=== PATIENT | female | born 1985 | race Caucasian/White ===

== ENCOUNTER 2019-10-01 11:22 | Emergency (ER) | payer OTHER, SELFPAY ==
[2019-10-01 11:28] VITALS: BMI 27.3
--- NOTE | 2019-10-01 11:33 | ED_ITS ---
Entered by Dary Martinez, acting as scribe for Surendra Barker DO HPI - Headache General: Chief Complaint: Headache Stated Complaint: migraine Time Seen by Provider: 10/01/19 11:34 Source: patient Mode of arrival: ambulatory Limitations: no limitations History of Present Illness: HPI Narrative: 34 yo female presents with a headache post dental pain. pt states this started a few nights ago. pt states her wisdom teeth removed and that is causing her headache. pt states she tried over the counter medications and pain medications and nothing is helping the pain. pt denies any other symptoms at this time. MD elicited complaint: headache Onset (ago): day(s) (3-4 days ago) Onset description: gradually Severity: moderate Quality & Timing: aching and throbbing Exacerbating factors: other (wisdom teeth causing headache) Relieving factors: nothing Context: occurred at rest Associated symptoms: Reports other (headache); Deny chest pain, fever(s), malaise, nausea, rash, syncope or vomiting Treatments prior to arrival: acetaminophen, ibuprofen, migraine medication and other (pain medications) Review of Systems General: Reports: 10 or more systems reviewed and unremarkable except in HPI and below Const: Denies: fever, chills, body aches, fatigue, malaise or night sweats Eyes: Denies: change in vision or blurry vision Card: Denies: chest pain, palpitations, irregular heart rhythm, edema, syncope, shortness of breath on exertion, shortness of breath when lying down or leg pain with exertion Resp: Denies: shortness of breath, productive cough, non-productive cough or wheezing GI: Denies: abdominal pain, nausea, vomiting, vomiting blood, coffee grounds in vomit, difficulty swallowing, heartburn/indigestion, diarrhea, constipation, cramping, blood in stool or black tarry stool : Denies: flank pain, painful urination, urinary frequency, urinary urgency, urinary incontinence or blood in urine Musc: Denies: neck pain, back pain, extremity pain, extremity swelling, joint pain or joint swelling Skin/Breast: Denies: rash, itching or redness Neuro: Reports: headache Psych: Denies: anxiety, depression, loss of interest, visual hallucinations, auditory hallucinations, suicidal ideation or homicidal ideation Endo: Denies: excessive urination, excessive thirst, tired all the time or cold intolerance Paul/Lymph: Denies: easy bruising, easy bleeding, petechiae, enlarged lymph nodes or tender lymph nodes PFSH ED PFSH: Social History Smoking and tobacco status: never smoked Physical Exam Const: COMMON NORMALS: average body habitus, oriented x3 and alert GENERAL APPEARANCE: cooperative, comfortable, well kempt and well developed NUTRITIONAL APPEARANCE: obese ORIENTATION/CONSCIOUSNESS: Yes awake, Yes oriented to person and Yes oriented to place HENMT: COMMON NORMALS: normocephalic, head/scalp atraumatic, EAC's normal, TM's normal bilaterally, external nose normal, moist oral mucous membranes and oropharynx normal HEAD & SCALP: normocephalic and atraumatic NOSE: external nose normal EXTERNAL AUDITORY CANAL: EAC's normal TYMPANIC MEMBRANE: TM's normal bilaterally THROAT: posterior oropharynx normal and tonsils normal Eye: COMMON NORMALS: PERRL, EOMs intact bilaterally, conjunctivae normal and no scleral icterus CONJUNCTIVA: Yes conjunctivae normal PUPIL: Yes PERRL Neck/C-Spine: COMMON NORMALS: full ROM, no lymphadenopathy, supple, no meningeal signs and thyroid normal THYROID: thyroid normal and asymmetrical Lymph: LYMPHATIC: no lymphadenopathy noted Resp: COMMON NORMALS: normal respiratory effort, no retractions, no use of accessory muscles and clear to auscultation bilaterally AUSCULTATION: clear to auscultation bilaterally Cardio: COMMON NORMALS: regular rate and regular rhythm RATE: regular rate RHYTHM: regular rhythm HEART SOUNDS: no murmurs GI: COMMON NORMALS: normal to inspection, nondistended, normoactive bowel sounds, soft to palpation and no hepatosplenomegaly PALPATION: Yes soft and Yes no hepatosplenomegaly : COMMON NORMALS: Yes no CVA tenderness BLADDER/KIDNEY EXAM: Yes no CVA tenderness Back/Pelvis: COMMON NORMALS: no CVA tenderness LUMBAR SPINE/LOWER BACK: Yes normal to inspection Extremity: COMMON NORMALS: no clubbing, cyanosis or edema, no calf tenderness and no pedal edema Neuro: COMMON NORMALS: oriented x3 SENSORIUM/ORIENTATION: Yes alert, Yes oriented to person and Yes oriented to place MENINGEAL SIGNS: Yes no meningeal signs Psych: APPEARANCE: Yes well kempt Skin: COMMON NORMALS: no rashes or lesions noted and skin turgor normal GENERAL SKIN EXAM: no rashes or lesions noted and turgor normal Course ED course: Improved after Toradol. Offered other medications patient declines now want anything sedative right now we will discharge home with [place] and promethazine to use PRN encouraged her to follow-up with her dentist etiology of the headache seems to be from the impacted wisdom teeth she is making arrangements to get them excised. Vital Signs: Vital signs: Vital Signs Temperature 97.7 F 10/01/19 12:17 Pulse Rate 85 10/01/19 12:17 Respiratory Rate 16 10/01/19 12:17 Blood Pressure 111/77 10/01/19 12:17 Pulse Oximetry 99 10/01/19 12:17 Discharge Plan Discharge Patient Disposition: Home, Self-Care Clinical Impression: Tension headache Condition: Stable Prescriptions: [place] 5-325 mg tablet 1 tab PO Q6H PRN (Reason: pain) Qty: 15 RF: 0 promethazine 25 mg tablet 25 mg PO QID PRN (Reason: nausea and vomiting) Qty: 20 RF: 0 No Action levothyroxine 137 mcg Tablet 137 mcg PO DAILY RF: 0 citalopram 40 mg Tablet 40 mg PO DAILY RF: 0 Imitrex 100 mg Tablet 100 mg PO Q2H PRN (Reason: Migraine Headache) RF: 0 naproxen sodium 550 mg Tablet 550 mg PO BID RF: 0 promethazine 25 mg Tablet 25 mg PO Q6H PRN (Reason: Nausea) RF: 0 Lactobacillus acidophilus Capsule 100 mg PO DAILY RF: 0 biotin-keratin 10,000-100 mcg-mg Tablet 1 tab PO DAILY RF: 0 Discharge Orders: Discharge Order (Routine); Ordered 10/01/19 Ordered By: Surendra Barker Referrals: Max Quintanilla MD [Primary Care Provider] - Discharge Date/Time: 10/01/19 12:18 Coding Level of Care Code ED Non Profit Financial Controller for Chg Fwd Exam Comprehensive The documentation recorded by the Juan huynh Bridget Annette, accurately reflects the service I personally performed and the decisions made by Lucero sylvester Curtis L, DO Oct 01, 2019 11:22
[2019-10-01] MEDS: ketorolac 60 mg/2 mL INJ IM (11:46)
[2019-10-01 12:17] VITALS: BP 111/77; PULSE 85; RESP 16; TEMP 36.5; O2SAT 99
== END 2019-10-01 12:18 | disposition home or self-care (01) ==
PROVIDERS: Emergency Provider Family Medicine; Family Provider Family Medicine; PCP Family Medicine
DX: G44.209 Tension-type headache, unspecified, not intractable (principal); E66.9 Obesity, unspecified; Z68.27 Body mass index [BMI] 27.0-27.9, adult
CPT/HCPCS: 96372; 99281; 99283; J1885

== ENCOUNTER 2020-03-15 11:47 | Outpatient (CLI) | payer OTHER, SELFPAY ==
--- NOTE | 2020-03-15 11:57 | MM_ITS ---
WS: [id number] BILATERAL DIAGNOSTIC MAMMOGRAM WITH KAI DISPLACEMENT VIEWS. CAD PERFORMED. LEFT breast ultrasound, limited HISTORY: LT BREAST MASS COMPARISON: None available. Bilateral craniocaudal and mediolateral like views are performed. Kai displacement views in CC and MLO projection also performed. Breasts composition: There are scattered areas of fibroglandular density. Bilateral prepectoral impl ants are intact. No suspicious masses or calcifications are identified. No nipple retraction. Palpabl e marker placed in the lateral LEFT breast is identified. No underlying mass identified. LEFT breast ultrasound, limited. Ultrasound is directed to the area of palpable abnormality. There is no abnormality identified by ult rasound. MM/[id number] IMPRESSION: BI-RADS: 2-Benign FOLLOW-UP: See Report Recommend mammography beginning at the age of 40.
== END 2020-03-15 11:48 | disposition home or self-care (01) ==
LOC: RADSHAW 11:51
PROVIDERS: PCP Family Medicine; Visit Provider Emergency Medicine
DX: N63.20 Unspecified lump in the left breast, unspecified quadrant (principal)
CPT/HCPCS: 76642; 77066